=== PATIENT | male | born 1995 | race Caucasian/White ===

== ENCOUNTER 2016-12-06 11:17 | Emergency (ER) | payer OTHER ==
[~2016-12-06] VITALS: Ht 177.8 cm; Wt 65.0 kg
[~2016-12-06 11:17] MED LIST: AMOXICILLIN500 MG PO; BICILLIN L1.2 MU/SYR IM; KEFLEX500 MG PO
[2016-12-06] MEDS ORDERED: NAPROSYN500 MG PO (13:26)
[2016-12-06 13:30] VITALS: BP 138/64
== END 2016-12-06 13:30 | disposition home or self-care (01) | DRG 556 ==
LOC: ED 11:17
DX: M25.552 Pain in left hip (principal); R10.32 Left lower quadrant pain; V43.53XA Car driver injured in collision with pick-up truck in traffic accident, initial encounter